=== PATIENT | male | born 1995 | race African-American/Black ===

== ENCOUNTER 2023-06-06 07:24 | Emergency (ER) | payer OTHER ==
[~2023-06-06] VITALS: Ht 175.3 cm; Wt 65.4 kg
[2023-06-06] MEDS ORDERED: PANTOPRAZOLE 40MG VIAL IV ONE (07:55)
[2023-06-06] MEDS ORDERED: NS 1,000 ML IV ONE (07:55)
[2023-06-06] MEDS ORDERED: KETOROLAC 30 MG/ML 1ML VIAL IV ONE (07:55)
[2023-06-06 08:25] LABS: BASO % 0.3 % (0.0-1.0); EOS # 0.2 10^3/uL (0.0-0.5); EOS % 3.2 % (0.0-3.0); HEMATOCRIT 47.4 % (42.0-52.0); LYMPH # 1.2 10^3/uL (1.5-5.0); LYMPH % 20.4 % (24.0-44.0); MEAN CORPUSCULAR HEMOGLOBIN 28.7 pg (27.0-33.0); MEAN CORPUSCULAR HGB CONC 33.8 g/dl (32.0-36.5); MEAN CORPUSCULAR VOLUME 85.1 fl (80.0-96.0); MONO # 0.4 10^3/uL (0.0-0.8); MONO % 6.9 % (2.0-8.0); NEUTROPHILS # 4.1 10^3/uL (1.5-8.5); NEUTROPHILS % 68.9 % (36.0-66.0); PLATELET COUNT, AUTOMATED 114 10^3/uL (150-450); RED BLOOD COUNT 5.57 10^6/uL (4.30-6.10); WHITE BLOOD COUNT 5.9 10^3/uL (4.0-10.0)
[2023-06-06 08:58] LABS: LIPASE 28 U/L (12-53)
[2023-06-06 09:00] LABS: ALBUMIN 4.2 G/DL (3.2-5.2); ALKALINE PHOSPHATASE 62 U/L (46-116); ALT/SGPT 35 U/L (7.0-40); AST/SGOT 37 U/L (<34); BILIRUBIN,DIRECT 0.5 MG/DL (<0.4); BILIRUBIN,TOTAL 1.4 MG/DL (0.3-1.2); BLOOD UREA NITROGEN 12 MG/DL (9-23); CALCIUM LEVEL 9.6 MG/DL (8.5-10.1); CARBON DIOXIDE LEVEL 30 MMOL/L (20-31); CHLORIDE LEVEL 104 MMOL/L (98-107); CREATININE FOR GFR 0.99 MG/DL (0.70-1.30); GLOMERULAR FILTRATION RATE > 60.0 (>60); GLUCOSE, FASTING 90 MG/DL (60-100); POTASSIUM SERUM 4.7 MMOL/L (3.5-5.1); SODIUM LEVEL 140 MMOL/L (136-145); TOTAL PROTEIN 7.4 G/DL (5.7-8.2)
[2023-06-06] MEDS ORDERED: ISOVUE-370 76% 100ML VIAL As Ordered ONE (09:18)
[2023-06-06] MEDS ORDERED: IBUP-1022 PO (10:37)
[2023-06-06 11:06] VITALS: BP 108/71; TEMP 96.8; O2SAT 100
== END 2023-06-06 11:18 | disposition home or self-care (01) ==
LOC: M ED 07:24
DX: R10.10 Upper abdominal pain, unspecified (principal); R16.1 Splenomegaly, not elsewhere classified; Z79.1 Long term (current) use of non-steroidal anti-inflammatories (NSAID)
CPT/HCPCS: 74177; 76705; 80048; 80076; 81001; 83690; 85025; 96361; 96374; 96375; 99284; C9113; J1885; Q9967

== ENCOUNTER 2024-10-27 15:44 | Emergency (ER) | payer OTHER ==
[~2024-10-27] VITALS: Ht 177.8 cm; Wt 73.3 kg
[~2024-10-27 15:44] MED LIST: IBUP-1022 PO
[2024-10-27 15:47] VITALS: BP 179/69; TEMP 99.3; O2SAT 99
[2024-10-27] MEDS: NS (Normal Saline) 0.9% 1,000 ML IV ONE (18:53)
[2024-10-27] MEDS: KETOROLAC 30 MG/ML 1ML VIAL IV ONE (18:55)
[2024-10-27] MEDS: METOCLOPRAMIDE INJ 10MG/2ML VIAL IV ONE (18:56)
[2024-10-27] MEDS: ACETAMINOPHEN 325 MG TAB PO ONE (18:57)
== END 2024-10-27 21:30 | disposition home or self-care (01) ==
LOC: M ED 15:44
DX: G43.909 Migraine, unspecified, not intractable, without status migrainosus (principal); Z79.1 Long term (current) use of non-steroidal anti-inflammatories (NSAID)
CPT/HCPCS: 87486; 87581; 87633; 87798; 96374; 96375; 99284; J1885; J2765

== ENCOUNTER 2024-12-23 08:36 | Emergency (ER) | payer OTHER ==
[~2024-12-23] VITALS: Ht 175.3 cm; Wt 69.9 kg
[2024-12-23] MEDS ORDERED: SUMA50TA2 (08:43)
[2024-12-23] MEDS: diphenhydrAMINE 50MG/ML VIAL IV ONE (09:52)
[2024-12-23] MEDS: KETOROLAC 30 MG/ML 1ML VIAL IV ONE (09:53)
[2024-12-23] MEDS: METOCLOPRAMIDE INJ 10MG/2ML VIAL IV ONE (09:53)
[2024-12-23] MEDS: NS (Normal Saline) 0.9% 1,000 ML IV ONE (09:53)
[2024-12-23 11:37] VITALS: BP 120/66; TEMP 99.2; O2SAT 99
[2024-12-23] MEDS: dexAMETHasone 20MG/5ML VIAL IV ONE (12:27)
== END 2024-12-23 12:55 | disposition home or self-care (01) ==
LOC: M ED 08:36
DX: G43.909 Migraine, unspecified, not intractable, without status migrainosus (principal); Z79.899 Other long term (current) drug therapy
CPT/HCPCS: 96361; 96374; 96375; 99284; J1100; J1200; J1885; J2765

== ENCOUNTER 2025-01-11 06:26 | Emergency (ER) | payer OTHER ==
[~2025-01-11] VITALS: Ht 177.8 cm; Wt 69.1 kg
[~2025-01-11 06:26] MED LIST changes: +SUMA50TA2
[2025-01-11] MEDS: NS (Normal Saline) 0.9% 1,000 ML IV ONE (08:06)
[2025-01-11] MEDS: KETOROLAC 30 MG/ML 1ML VIAL IV ONE (08:07)
[2025-01-11] MEDS: ACETAMINOPHEN 500 MG TAB PO ONE (08:07)
[2025-01-11] MEDS: METOCLOPRAMIDE INJ 10MG/2ML VIAL IV ONE (08:25)
[2025-01-11 09:24] VITALS: TEMP 97.8
[2025-01-11 10:00] VITALS: BP 118/76; O2SAT 100
== END 2025-01-11 10:09 | disposition home or self-care (01) ==
LOC: M ED 06:26
DX: R51.9 Headache, unspecified (principal); B34.1 Enterovirus infection, unspecified; Z79.899 Other long term (current) drug therapy
CPT/HCPCS: 87486; 87581; 87633; 87798; 96374; 96375; 99284; J1885; J2765